=== PATIENT | female | born 1940 | race Caucasian/White ===

== ENCOUNTER 2017-12-01 04:39 | Emergency (ER) | payer MEDICARE, BC ==
[~2017-12-01] VITALS: Ht 167.6 cm; Wt 67.0 kg
[2017-12-01 04:55] VITALS: BP 116/63; PULSE 119; RESP 20; TEMP 97.6; O2SAT 100
--- NOTE | 2017-12-01 05:05 | PD ---
HPI Chief Complaint: Chest Pain Time Seen by Provider: 04:57 Travel History International Travel<30 days: No Contact w/Intl Traveler<30days: No Traveled to known affect area: No History of Present Illness HPI The patient is a 76-year-old female with no known history of heart disease who complains of chest pressure, shortness of breath and tachycardia beginning around 3:00 this morning. She denies any syncopal or near syncopal spells. The pressure is located in the midsternal region and is constant. She does have shortness of breath, nausea and diaphoresis associated with this. She denies any radiation of pain. The patient does have a history of hypothyroid, elevated cholesterol and hypertension. She lives in [place] but does not have a customer service coordinator in [place] and has just found a primary care physician, Dr. Duarte, but has not done anything with him except for the initial visit. She denies any history of atrial fib or atrial flutter in the past. [facility] Social History Tobacco Use: No Allergies-Medications (Allergen,Severity, Reaction): Coded Allergies: No Known Drug Allergies (Verified Allergy, Unknown, 12/01/17) Reported Meds & Prescriptions Reported Meds & Active Scripts Active Reported Prempro Blister Pack (Estrogens Conj/Medroxyprogest Acet) 0.45-1.5 Mg Tab 1 Tab PO DAILY Lisinopril 10 Mg Tab 10 Mg PO DAILY Levothyroxine (Levothyroxine Sodium) 112 Mcg Tab 112 Mcg PO DAILY Lovastatin 40 Mg Tab 40 Mg PO DAILY Aspirin Low Dose (Aspirin) 81 Mg Chew 243 Mg CHEW DAILY Review of Systems Except as stated in HPI: all other systems reviewed are Neg Physical Exam Narrative GENERAL: The patient is alert, oriented 3 in moderate apparent distress with her pressure and shortness of breath. The heart rate is around 119, blood pressure 116/63 and respirations are 20. Oximetry is 100% on 2 L nasal cannula. SKIN: Focused skin assessment warm/dry. No skin rash is seen. HEAD: Atraumatic. Normocephalic. EYES: Pupils equal and round. No scleral icterus. No injection or drainage. ENT: No nasal bleeding or discharge. Mucous membranes pink and moist. NECK: Trachea midline. No JVD. CARDIOVASCULAR: Regular tachycardia rhythm. No murmur appreciated. RESPIRATORY: No accessory muscle use. Clear to auscultation. Breath sounds equal bilaterally. GASTROINTESTINAL: Abdomen soft, non-tender, nondistended. Hepatic and splenic margins not palpable. No guarding or rebound is present. MUSCULOSKELETAL: No obvious deformities. No clubbing. No cyanosis. No edema. NEUROLOGICAL: Awake and alert. No obvious cranial nerve deficits. Motor grossly within normal limits. Normal speech. PSYCHIATRIC: Appropriate mood and affect; insight and judgment normal. Data Data Last Documented VS Vital Signs Date Time Temp Pulse Resp B/P (MAP) Pulse Ox O2 Delivery O2 Flow Rate FiO2 12/01/17 05:40 72 20 100/61 (74) 98 12/01/17 05:15 Nasal Cannula 2.00 12/01/17 05:15 97.2 Orders Orders Electrocardiogram (12/01/17 05:07) B-Type Natriuretic Peptide (12/01/17 05:07) Ckmb (Isoenzyme) Profile (12/01/17 05:07) Complete Blood Count With Diff (12/01/17 05:07) Comprehensive Metabolic Panel (12/01/17 05:07) Magnesium (Mg) (12/01/17 05:07) Prothrombin Time / Inr (Pt) (12/01/17 05:07) Act Partial Throm Time (Ptt) (12/01/17 05:07) Troponin I (12/01/17 05:07) Ecg Monitoring (12/01/17 05:07) Bilateral Bp Monitoring (12/01/17 05:07) Iv Access Insert/Monitor (12/01/17 05:07) Oximetry (12/01/17 05:07) Oxygen Administration (12/01/17 05:07) Aspirin Chew (Aspirin Chew) (12/01/17 05:15) Sodium Chloride 0.9% Flush (Ns Flush) (12/01/17 05:15) Metoprolol Tartrate Inj (Lopressor Inj) (12/01/17 05:15) Sodium Chlorid 0.9% 500 Ml Inj (Ns 500 M (12/01/17 05:15) Chest, Pa & Lat (12/01/17 05:07) Labs Laboratory Tests Test 12/01/17 05:12 White Blood Count 7.0 TH/MM3 Red Blood Count 4.02 MIL/MM3 Hemoglobin 12.3 GM/DL Hematocrit 36.6 % Mean Corpuscular Volume 90.9 FL Mean Corpuscular Hemoglobin 30.6 PG Mean Corpuscular Hemoglobin Concent 33.6 % Red Cell Distribution Width 13.3 % Platelet Count 249 TH/MM3 Mean Platelet Volume 8.2 FL Neutrophils (%) (Auto) 52.1 % Lymphocytes (%) (Auto) 34.4 % Monocytes (%) (Auto) 6.3 % Eosinophils (%) (Auto) 5.5 % Basophils (%) (Auto) 1.7 % Neutrophils # (Auto) 3.7 TH/MM3 Lymphocytes # (Auto) 2.4 TH/MM3 Monocytes # (Auto) 0.4 TH/MM3 Eosinophils # (Auto) 0.4 TH/MM3 Basophils # (Auto) 0.1 TH/MM3 CBC Comment DIFF FINAL Differential Comment Prothrombin Time 10.3 SEC Prothromb Time International Ratio 1.0 RATIO Activated Partial Thromboplast Time 27.3 SEC Blood Urea Nitrogen 18 MG/DL Creatinine 0.97 MG/DL Random Glucose 167 MG/DL Total Protein 6.8 GM/DL Albumin 3.6 GM/DL Calcium Level 8.2 MG/DL Magnesium Level 2.1 MG/DL Alkaline Phosphatase 43 U/L Aspartate Amino Transf (AST/SGOT) 19 U/L Alanine Aminotransferase (ALT/SGPT) 22 U/L Total Bilirubin 0.6 MG/DL Sodium Level 140 MEQ/L Potassium Level 3.4 MEQ/L Chloride Level 108 MEQ/L Carbon Dioxide Level 21.7 MEQ/L Anion Gap 10 MEQ/L Estimat Glomerular Filtration Rate 56 ML/MIN Total Creatine Kinase 91 U/L Troponin I LESS THAN 0.02 NG/ML B-Type Natriuretic Peptide 128 PG/ML [facility] Medical Decision Making Medical Screen Exam Complete: Yes Emergency Medical Condition: Yes Medical Record Reviewed: Yes Interpretation(s) EKG shows an atrial flutter/tachycardia with a rate of 127 and right bundle branch block and no acute ST elevation or depression. The chest x-ray is normal. The coagulation profile is normal. The complete metabolic profile shows a GFR of 56, glucose 167, calcium 8.2 with potassium 3.4 but is otherwise unremarkable. The cardiac enzymes are normal. The CBC is normal. The BNP is 128. At approximately 0605 the patient converted to a normal sinus rhythm with a rate of 60. She says she feels fine now. She was offered admission but declined and wants to go home. Differential Diagnosis Atrial flutter with RVR, acute coronary syndrome, electrolyte disorder, Narrative Course The patient has atrial flutter with RVR but converted spontaneously to normal sinus rhythm. When she converted to normal sinus rhythm she felt much better and her symptoms have resolved. The patient was offered admission but she strongly declined, she wants to go home. Diagnosis Primary Impression: Atrial flutter Additional Impression: Tachycardia Additional Instructions: As we discussed, if you get this rhythm again you should definitely be admitted. Med/Other Pt SpecificInfo: No Change to Meds Disposition: 01 DISCHARGE HOME Condition: Stable Mike Carrillo MD December 01, 2017 05:05
[2017-12-01] MEDS ORDERED: LOVA40TA PO (05:10)
[2017-12-01] MEDS ORDERED: LEVO112T2 PO (05:10)
[2017-12-01] MEDS ORDERED: LISI10TA3 PO (05:10)
[2017-12-01] MEDS ORDERED: PREM0.452 PO (05:10)
[2017-12-01] MEDS ORDERED: ASPI81CH6 CHEW (05:10)
[2017-12-01 05:15] VITALS: BP 94/53; PULSE 72; RESP 20; TEMP 97.2; O2SAT 100
[2017-12-01] MEDS ORDERED: ASPIRIN 81 MG CHEW TAB PO ONE (05:15)
[2017-12-01] MEDS ORDERED: SODIUM CHLORIDE 0.9% FLUSH 10 ML FLUSH IVF PRN (05:15)
[2017-12-01] MEDS: METOPROLOL TARTRATE 5 MG/5 ML VIAL IVS SCH ×3 (05:15→05:25)
[2017-12-01] MEDS ORDERED: SODIUM CHLORID 0.9% 500 ML INJ 500 ML IV ONE (05:15)
[2017-12-01 05:16] LABS: AUTOMATED NEUTROPHIL # 3.7 TH/MM3 (1.8-7.7); BASOPHIL # 0.1 TH/MM3 (0-0.2); BASOPHIL % 1.7 % (0.0-2.0); EOSINOPHIL # 0.4 TH/MM3 (0-0.4); EOSINOPHIL % 5.5 % (0.0-4.0); HEMATOCRIT 36.6 % (35.0-46.0); HEMOGLOBIN 12.3 GM/DL (11.6-15.3); LYMPH % 34.4 % (9.0-44.0); LYMPHOCYTE # 2.4 TH/MM3 (1.0-4.8); MEAN CELL VOLUME 90.9 FL (80.0-100.0); MEAN CORPUSCULAR HEMOGLOBIN 30.6 PG (27.0-34.0); MEAN CORPUSCULAR HGB CONC 33.6 % (32.0-36.0); MEAN PLATELET VOLUME 8.2 FL (7.0-11.0); MONO % 6.3 % (0.0-8.0); MONOCYTE # 0.4 TH/MM3 (0-0.9); NEUT % 52.1 % (16.0-70.0); PLATELET COUNT 249 TH/MM3 (150-450); RED BLOOD COUNT 4.02 MIL/MM3 (4.00-5.30); RED CELL DISTRIBUTION WIDTH 13.3 % (11.6-17.2)
[2017-12-01 05:24] LABS: CHLORIDE 108 MEQ/L (98-107); SODIUM (NA) 140 MEQ/L (136-145)
[2017-12-01 05:27] LABS: CALCIUM 8.2 MG/DL (8.5-10.1)
[2017-12-01 05:28] LABS: ALBUMIN 3.6 GM/DL (3.4-5.0); BICARBONATE 21.7 MEQ/L (21.0-32.0); BLOOD UREA NITROGEN 18 MG/DL (7-18); GLUCOSE,RANDOM 167 MG/DL (74-106); MAGNESIUM 2.1 MG/DL (1.5-2.5); PROTHROMBIN TIME - PATIENT 10.3 SEC (9.8-11.6)
[2017-12-01 05:31] LABS: ALT (GPT) 22 U/L (10-53); AST (GOT) 19 U/L (15-37); CREATININE 0.97 MG/DL (0.50-1.00); GLOMERULAR FILTRATION RATE 56 ML/MIN (>89)
[2017-12-01 05:32] LABS: TOTAL BILIRUBIN ADULT 0.6 MG/DL (0.2-1.0); TOTAL PROTEIN 6.8 GM/DL (6.4-8.2)
[2017-12-01 05:34] LABS: ALKALINE PHOSPHATASE 43 U/L (45-117)
[2017-12-01 05:36] LABS: TROPONIN I LESS THAN 0.02 NG/ML (0.02-0.05)
[2017-12-01 05:40] VITALS: BP 100/61; PULSE 72; RESP 20; O2SAT 98
--- NOTE | 2017-12-01 06:27 | RADRPT ---
EXAM DATE/TIME: 12/01/2017 05:15 [facility] COMPARISON: No previous studies available for comparison. INDICATIONS : Chest pain. MEDICAL HISTORY : Hypothyroidism. Hypertension Hypercholesterolemia. Valve regurgitation. SURGICAL HISTORY : None. ENCOUNTER: Initial ACUITY: 1 day PAIN SCORE: 4/10 LOCATION: Bilateral chest FINDINGS: There is an abnormal density along the cardiac silhouette on the lateral view with low retrosternal m ass not excludable. No abnormal Findings code seen on the frontal, however. Followup with CT chest wo uld be suggested. The lungs appear grossly clear. No effusion suspected. Heart size and pulmonary vas cular normal. Mild degenerative change in the spine. CONCLUSION: Abnormal chest. Recommend CT for followup. Raymond Guerrero MD on December 01, 2017 at 6:22 Board Certified Radiologist. This report was verified electronically.
[2017-12-01 07:00] VITALS: BP 110/62
--- NOTE | 2017-12-01 13:08 | EKG ---
Date Performed: 12/01/2017 Time Performed: 04:43:19 PTAGE: 76 years EKG: ATRIAL FLUTTER/TACHYCARDIA WITH RAPID VENTRICULAR RESPONSE RIGHT BUNDLE BRANCH BLOCK ABNORM AL ECG NO PREVIOUS TRACING DOCTOR: Joe Hoyt Interpretating Date/Time 12/01/2017 13:06:41
--- NOTE | 2017-12-01 13:09 | EKG ---
Date Performed: 12/01/2017 Time Performed: 06:11:06 PTAGE: 76 years EKG: SINUS BRADYCARDIA RIGHT BUNDLE BRANCH BLOCK ABNORMAL ECG PREVIOUS TRACING : 12/01/2017 04.43 Compared to the prior tracing, Sinus rhythm has replaced atrial flutter/tachycardia. DOCTOR: Joe Hoyt Interpretating Date/Time 12/01/2017 13:07:08
== END 2017-12-01 07:01 | disposition home or self-care (01) ==
LOC: PHED 04:39
DX: I48.92 Unspecified atrial flutter (principal); R00.0 Tachycardia, unspecified; I45.10 Unspecified right bundle-branch block; R94.31 Abnormal electrocardiogram [ECG] [EKG]; R06.02 Shortness of breath; R11.0 Nausea; E03.9 Hypothyroidism, unspecified; E78.00 Pure hypercholesterolemia, unspecified; I10 Essential (primary) hypertension
CPT/HCPCS: 71046; 80053; 82550; 83735; 83880; 84484; 85025; 85610; 85730; 93005; 96360; 99285; J7040